=== PATIENT | female | born 1965 | race Caucasian/White ===

== ENCOUNTER 2016-09-25 16:16 | Emergency (ER) | payer BC ==
[~2016-09-25] VITALS: Ht 167.6 cm; Wt 83.9 kg
[~2016-09-25 16:16] MED LIST: ARIP10TA9 PO; BUPR100T4 PO; CIPR-262 PO; CLON1TAB PO; LEVO112T2 PO; LEVO125T PO; MINOCIN PO
[2016-09-25] MEDS ORDERED: ACET-73 PO (16:32)
[2016-09-25] MEDS ORDERED: NAPR250T2 PO (16:32)
[2016-09-25] MEDS ORDERED: LAMO200T2 PO (16:32)
[2016-09-25] MEDS ORDERED: FLUO20CA36 PO (16:32)
--- NOTE | 2016-09-25 17:00 | NUR ---
ER MD AT THE BEDSIDE FOR EVAL AND EXAM.
[2016-09-25] MEDS ORDERED: IBUPROFEN 600 MG TABLET PO ONE (17:15)
[2016-09-25] MEDS ORDERED: IBUPROFEN 600 MG TABLET ONE (17:19)
--- NOTE | 2016-09-25 17:22 | NUR ---
SKIN TEAR ON LLE CLEANED AND DRESSED PER .
[2016-09-25] MEDS ORDERED: TDAP DIPH,PERTUSS,TET VAC/PF 0.5 ML DISP.SYRIN IM ONE ×2 (17:45→17:58)
--- NOTE | 2016-09-25 18:30 | NUR ---
Crutches dispensed. Pt instructed on proper use of crutches. Patient able to demonstrate correct use of crutches.
--- NOTE | 2016-09-25 18:55 | NUR ---
Patient discharged to home in stable conditon. Written and verbal after care instructions given. Patient verbalizes understanding of instructions.
[2016-09-25 18:56] VITALS: BP 134/80
== END 2016-09-25 18:57 | disposition home or self-care (01) ==
LOC: ER 16:18
DX: S93.402A Sprain of unspecified ligament of left ankle, initial encounter (principal); S90.812A Abrasion, left foot, initial encounter; F32.9 Major depressive disorder, single episode, unspecified; F17.200 Nicotine dependence, unspecified, uncomplicated; W18.30XA Fall on same level, unspecified, initial encounter; Y93.89 Activity, other specified; Y99.8 Other external cause status; Y92.89 Other specified places as the place of occurrence of the external cause
CPT/HCPCS: 73070; 73600; 73620; 90715; A4663

== ENCOUNTER 2016-10-23 09:15 | Emergency (ER) | payer BC ==
[~2016-10-23] VITALS: Ht 167.6 cm; Wt 86.2 kg
[~2016-10-23 09:15] MED LIST changes: +ACET-73 PO; -CIPR-262 PO; +FLUO20CA36 PO; +LAMO200T2 PO; +NAPR250T2 PO
[2016-10-23] MEDS ORDERED: PRED1TAB PO (09:23)
[2016-10-23] MEDS ORDERED: HYDR-3326 PO (09:23)
[2016-10-23] MEDS: HYDROCODONE/APAP 5-325MG TABLET PO ONE (09:35)
--- NOTE | 2016-10-23 09:40 | NUR ---
pt is in room #2a. dr [email or web address] evaluated the pt.
[2016-10-23] MEDS ORDERED: HYDROCODONE/APAP 5-325MG TABLET ONE (09:50)
[2016-10-23] MEDS: BUPIVACAINE PF 0.5% 30 ML VIAL TP ONE (10:12)
[2016-10-23] MEDS ORDERED: BUPIVACAINE PF 0.5% 30 ML VIAL ONE (10:19)
[2016-10-23 10:37] VITALS: BP 132/76
--- NOTE | 2016-10-23 10:37 | NUR ---
pt was d/c to home. d/c instructions given to the pt.
== END 2016-10-23 10:38 | disposition home or self-care (01) ==
LOC: ER 09:15
DX: S52.501A Unspecified fracture of the lower end of right radius, initial encounter for closed fracture (principal); F17.200 Nicotine dependence, unspecified, uncomplicated; W01.0XXA Fall on same level from slipping, tripping and stumbling without subsequent striking against object, initial encounter; Y93.89 Activity, other specified; Y92.020 Kitchen in mobile home as the place of occurrence of the external cause; Y99.9 Unspecified external cause status
CPT/HCPCS: 73110; A4663; J3490

== ENCOUNTER 2016-12-16 20:29 | Emergency (ER) | payer BC ==
[~2016-12-16] VITALS: Ht 167.6 cm; Wt 84.4 kg
[~2016-12-16 20:29] MED LIST changes: +HYDR-3326 PO; +PRED1TAB PO
--- NOTE | 2016-12-16 21:54 | NUR ---
Patient discharged to home in stable conditon. Written and verbal after care instructions given. Patient verbalizes understanding of instructions.
[2016-12-16] MEDS ORDERED: HYDROCODONE/APAP 5-325MG TABLET ONE (22:00)
[2016-12-16] MEDS ORDERED: HYDROCODONE/APAP 5-325MG TABLET PO ONE (22:00)
== END 2016-12-16 22:04 | disposition home or self-care (01) ==
LOC: ER 20:30
DX: S52.532A Colles' fracture of left radius, initial encounter for closed fracture (principal); S52.616A Nondisplaced fracture of unspecified ulna styloid process, initial encounter for closed fracture; F17.200 Nicotine dependence, unspecified, uncomplicated; W01.0XXA Fall on same level from slipping, tripping and stumbling without subsequent striking against object, initial encounter; Y93.89 Activity, other specified; Y92.9 Unspecified place or not applicable; Y99.9 Unspecified external cause status
CPT/HCPCS: 29125; 73110; 99284; A4663

== ENCOUNTER 2018-02-20 09:01 | Emergency (ER) | payer BC ==
[~2018-02-20] VITALS: Ht 167.6 cm; Wt 88.0 kg
[~2018-02-20 09:01] MED LIST changes: -NAPR250T2 PO; +NAPR250T4 PO
[2018-02-20] MEDS ORDERED: METO25TA3 PO (09:13)
[2018-02-20] MEDS ORDERED: TORS10TA PO (09:15)
[2018-02-20] MEDS ORDERED: LIOT25TA7 PO (09:15)
--- NOTE | 2018-02-20 09:21 | NUR ---
Dr Shahid is at bedside doing the MSE.
[2018-02-20] MEDS ORDERED: TDAP DIPH,PERTUSS,TET VAC/PF 0.5 ML DISP.SYRIN IM ONE ×2 (09:25→09:30)
--- NOTE | 2018-02-20 09:50 | NUR ---
Patient discharged to home in stable conditon & brisk steady gait. Written and verbal after care instructions given to patient. Patient verbalizes understanding of instructions.
[2018-02-20] MEDS ORDERED: NEOMY/BACITRA/POLYMYXIN B OINT UD PACKET TP ONE ×2 (09:57→10:00)
== END 2018-02-20 09:59 | disposition home or self-care (01) ==
LOC: ER 09:01
DX: S61.452A Open bite of left hand, initial encounter (principal); F17.200 Nicotine dependence, unspecified, uncomplicated; W54.0XXA Bitten by dog, initial encounter; Y93.89 Activity, other specified; Y92.89 Other specified places as the place of occurrence of the external cause; Y99.8 Other external cause status
CPT/HCPCS: 73130; 90715; A4217; A4663